=== PATIENT | female | born 1975 | race Caucasian/White ===

== ENCOUNTER 2020-04-02 11:09 | Emergency (ER) | payer BC ==
[~2020-04-02] VITALS: Ht 172.7 cm; Wt 81.8 kg
[~2020-04-02 11:09] MED LIST: CLARITIN 1010 MG/TAB; FLONASE NASAL S16 GM; PRENATAL1 TA1; PROAIR HFA0.09 MG/AC IH; SUDAFED30 MG
[2020-04-02 11:20] VITALS: TEMP 98.3
[2020-04-02 12:10] LABS: BASO % 0.5 % (0.0-2.0); EOS # 0.2 (0.0-0.7); EOS % 2.4 % (0-4.0); GRAN # 6.5 (1.4-6.5); GRAN % 73.9 % (42.2-75.2); HEMATOCRIT 40.9 % (37.0-47.0); HEMOGLOBIN 13.6 g/dl (12.5-16.0); LYMPH # 1.6 (1.2-3.4); LYMPH % 17.7 % (20.0-51.0); MEAN CELL VOLUME 87 fl (80.0-100.0); MEAN CORPUSCULAR HEMOGLOBIN 29 pg (27.0-31.0); MEAN CORPUSCULAR HGB CONC 33 g/dl (33.0-37.0); MEAN PLATELET VOLUME 10.4 fl (7.4-10.4); MONO # 0.5 (0.1-0.6); MONO % 5.3 % (1.7-9.3); PLATELET COUNT 237 K/mm3 (130-400); REDCELL DISTRIBUTION WIDTH-CV 12.7 % (11.5-14.5)
[2020-04-02 12:30] LABS: ALBUMIN 4.2 gm/dL (3.5-5.0); BILIRUBIN,TOTAL 0.6 mg/dL (0.0-1.0); CALCIUM 9.2 mg/dL (8.4-10.2); CREATININE, serum 0.79 (0.52-1.25); POTASSIUM 4.1 mmol/L (3.4-5.0); TOTAL PROTEIN 7.4 gm/dL (6.4-8.2)
[2020-04-02] MEDS ORDERED: VALIUM 2MG T2 MG/TAB PO (14:37)
[2020-04-02 14:49] VITALS: BP 98/57; PULSE 63
== END 2020-04-02 14:49 | disposition home or self-care (01) ==
LOC: COL.ER 11:09
PROVIDERS: Nurse Practitioner Primary Care
DX: M43.6 Torticollis (principal); J45.909 Unspecified asthma, uncomplicated; Z20.828 Contact with and (suspected) exposure to other viral communicable diseases
CPT/HCPCS: J1885; Q9967

== ENCOUNTER → 2021-06-01 | Outpatient (CLI) | payer BC ==
[2004-11-29 08:00] VITALS: TEMP 97.8
[~2021-06-01] MED LIST changes: +VALIUM 2MG T2 MG/TAB PO
== END ==
LOC: MC.RAD 10:57
DX: N63.20 Unspecified lump in the left breast, unspecified quadrant (principal)

== ENCOUNTER → 2021-06-07 | Outpatient (CLI) | payer BC ==
[2004-11-29 08:00] VITALS: TEMP 97.8
== END ==
LOC: MC.RAD 07:00
DX: N60.02 Solitary cyst of left breast (principal)